=== PATIENT | female | born 1995 | race Caucasian/White ===

== ENCOUNTER 2024-02-18 12:36 | Outpatient (CLI) | payer MEDICAID, SELFPAY ==
--- NOTE | 2024-02-18 13:00 | CRLHL7_ITS ---
For Patients: As a result of the Cures Act, medical imaging exams and procedure reports are released immediately into your electronic medical record. You may view this report before your referring provider. If you have questions, please contact your health care provider. INDICATION: First trimester scan, establish dates. COMPARISON: None. TECHNIQUE: Real-time lomeli-scale imaging of the pelvis was performed. FINDINGS: Sonographic imaging demonstrates a single living intrauterine gestation. The embryo demonstrates a regular cardiac rate measuring 165 beats per minute. The embryo`s crown-rump length measurement of 6.0 cm corresponds to a gestational age of 12 weeks 3 days with a sonographic due date of 08/29/2024. There is a normal-appearing yolk sac. There are no gross abnormalities noted within the embryo at this early state of development. The gestational sac has a normal appearance. There is no evidence of a perigestational hemorrhage. The amount of fluid within the sac appears appropriate for gestational age. The cervix is closed. The myometrium appears normal. Left ovary not visualized. Corpus luteal cyst right ovary. There are no suspicious fluid collections noted in the cul-de-sac. IMPRESSION: Normal first trimester OB ultrasound exam. Gestational age calculated at 12 weeks 3 days with a sonographic due date of 08/29/2024. Dictated by Steve Fitzgerald MD @ 02/19/2024 8:32:38 AM (Electronically Signed)
== END 2024-02-18 12:37 | disposition home or self-care (01) ==
PROVIDERS: PCP Family Medicine; Visit Provider Physician Assistant
DX: Z34.91 Encounter for supervision of normal pregnancy, unspecified, first trimester (principal); Z3A.12 12 weeks gestation of pregnancy
CPT/HCPCS: 76801

== ENCOUNTER 2024-02-18 14:16 | Outpatient (CLI) | payer MEDICAID, SELFPAY ==
[2024-02-18 20:10] LABS: Chlamydia DNA Amplified* NOT DETECTED (No Detected); GC DNA Amplified* NOT DETECTED (No Detected)
[2024-02-21 01:30] LABS: HPV Source Cervix; HPV, High Risk by TMA Not Detected
== END 2024-02-18 14:17 | disposition home or self-care (01) ==
PROVIDERS: PCP Family Medicine; Visit Provider Physician Assistant
DX: Z34.01 Encounter for supervision of normal first pregnancy, first trimester (principal); Z67.10 Type A blood, Rh positive; Z3A.12 12 weeks gestation of pregnancy
CPT/HCPCS: 86592; 86703; 86704; 86706; 86762; 86787; 86803; 86850; 86900; 86901; 87086; 87340; 87491; 87591; 87624; 87625; 88141; 88142

== ENCOUNTER 2024-04-11 07:03 | Outpatient (CLI) | payer BC, SELFPAY ==
--- NOTE | 2024-04-11 07:15 | CRLHL7_ITS ---
For Patients: As a result of the Century Cures Act, medical imaging exams and procedure reports are released immediately into your electronic medical record. You may view this report before your referring provider. If you have questions, please contact your health care provider. INDICATION: survey TECHNIQUE: Conventional transabdominal two-dimensional grayscale ultrasound examination COMPARISON: None FINDINGS: There is a living fetus with gestational age of 19 weeks 5 days by LMP and 20 weeks 2 days by today`s measurements. EDC based on LMP is 08/31/2024. BPD: 4.6 cm, 19 weeks 6 days Head circumference: 17.6 cm, 20 weeks 1 day Abdominal circumference: 15.2 cm, 20 weeks 3 days Femur length: 3.3 cm, 20 weeks 3 days HC/AC: 1.16 The weight is estimated at 348 grams, the 81st percentile. The heart rate is measured at 154 beats per minute and the rhythm appears regular. The head and spine are grossly intact. No gross facial abnormality is evident. The upper lip is intact. Four cardiac chambers are demonstrated. The heart and stomach appear to be on the same side. The diaphragm is intact. Two kidneys and a bladder are demonstrated. The cord insertion is normal and three cord vessels are noted. The hands and left arm are not visualized due to lie. The right arm and both legs are visualized. The amniotic fluid volume is within normal limits. The placenta is anterior with no evidence of previa. The cervical length is normal at 3.3 cm. IMPRESSION: 1. Living fetus with gestational age of 19 weeks 5 days by LMP and 20 weeks 2 days by today`s measurements. EDC based on LMP is 08/31/2024. 2. No anomaly evident. The hands and left arm not visualized due to lie. Dictated by Peter Bartholomew MD @ 04/11/2024 12:26:27 PM (Electronically Signed)
== END 2024-04-11 07:04 | disposition home or self-care (01) ==
PROVIDERS: PCP Family Medicine; Visit Provider Obstetrics & Gynecology
DX: Z34.92 Encounter for supervision of normal pregnancy, unspecified, second trimester (principal); Z3A.19 19 weeks gestation of pregnancy
CPT/HCPCS: 76805

== ENCOUNTER 2024-05-09 10:02 | Outpatient (CLI) | payer BC, SELFPAY ==
--- NOTE | 2024-05-09 10:15 | CRLHL7_ITS ---
For Patients: As a result of the Century Cures Act, medical imaging exams and procedure reports are released immediately into your electronic medical record. You may view this report before your referring provider. If you have questions, please contact your health care provider. INDICATION: Hands and left arm not visualized on survey TECHNIQUE: Limited transabdominal two-dimensional lomeli-scale ultrasound examination. COMPARISON: survey of 04/11/2024 FINDINGS: There is a living fetus in breech lie with gestational age of 23 weeks 5 days by LMP and EDC of 08/31/2024. The heart rate is measured at 157 beats per minute and the rhythm appears regular. The amniotic fluid volume is within normal limits with single deepest pocket of 5.4 cm. The placenta is anterior and superior to the cervical os. There is no evidence of previa. The hands and left arm are visualized and are unremarkable. IMPRESSION: 1. Living fetus in breech lie with gestational age of 23 weeks 5 days by LMP and EDC of 08/31/2024. 2. hands and left arm visualized and are unremarkable. Dictated by Peter Bartholomew MD @ 05/09/2024 4:33:24 PM (Electronically Signed)
== END 2024-05-09 10:03 | disposition home or self-care (01) ==
LOC: US 10:03
PROVIDERS: PCP Family Medicine; Visit Provider Obstetrics & Gynecology
DX: O35.GXX0 Maternal care for other (suspected) fetal abnormality and damage, fetal upper extremities anomalies, not applicable or unspecified (principal)
CPT/HCPCS: 76816

== ENCOUNTER 2024-06-06 10:01 | Outpatient (CLI) | payer BC, SELFPAY | END 2024-06-06 10:02 | disposition home or self-care (01) | LOC: NFLDREF 06-08 01:30 | PROVIDERS: PCP Family Medicine; Referring Provider Family Medicine; Visit Provider Obstetrics & Gynecology | DX: Z34.03 Encounter for supervision of normal first pregnancy, third trimester (principal) | CPT/HCPCS: 86592 ==

== ENCOUNTER 2024-08-05 14:20 | Outpatient (CLI) | payer BC, SELFPAY ==
[2024-08-06 15:02] LABS: Strep B DNA Probe Negative (Negative)
[2024-08-06 19:53] LABS: Strep B Susceptibility Needed? No
== END 2024-08-05 14:21 | disposition home or self-care (01) ==
LOC: NFLDREF 14:21
PROVIDERS: PCP Family Medicine; Visit Provider Obstetrics & Gynecology
DX: Z34.93 Encounter for supervision of normal pregnancy, unspecified, third trimester (principal); Z3A.36 36 weeks gestation of pregnancy
CPT/HCPCS: 87081; 87653

== ENCOUNTER 2024-08-11 11:15 | Outpatient (CLI) | payer BC, SELFPAY ==
[2024-08-11 11:18] VITALS: BP 115/67; PULSE 84; RESP 16
[2024-08-11 11:43] VITALS: PULSE 71; O2SAT 96
--- NOTE | 2024-08-11 12:46 | PC.OBNST ---
NST Note NST Note Start: 08/11/24 11:18 Freq: ONCE Status: Active Protocol: Document 08/11/24 12:43 BAW (Rec: 08/11/24 12:45 BAW No Response) NST Note 1 Para (# of births) 0 EDC 08/31/24 Gestational Age In Weeks & Days 37 Weeks & 1 Days Patient Presented with Complaint(s) of Decreased movement Reactive Yes Appropriate for Gestational Age Yes JOSHUA Wright RNC Date 08/11/24 Reactive Yes Appropriate for Gestational Age Yes JOSHUA Blum RNC Date 08/11/24 OB NST charge Yes Complete NST Note via Write Note Yes The provider's electronic signature indicates the NST is reactive/appropriate for gestational age. *Note to provider: If an addendum is required, open the patient's chart and click on the note under the Nurse/Allied Health tab.
== END 2024-08-11 12:17 | disposition home or self-care (01) ==
LOC: OB OUT 11:16 → OB 11:17
PROVIDERS: PCP Family Medicine; Visit Provider Obstetrics & Gynecology
DX: O36.8130 Decreased fetal movements, third trimester, not applicable or unspecified (principal); Z3A.37 37 weeks gestation of pregnancy
CPT/HCPCS: 59025; G0463

== ENCOUNTER 2024-08-12 10:03 | Outpatient (CLI) | payer BC, SELFPAY ==
--- NOTE | 2024-08-12 10:00 | CRLHL7_ITS ---
For Patients: As a result of the Century Cures Act, medical imaging exams and procedure reports are released immediately into your electronic medical record. You may view this report before your referring provider. If you have questions, please contact your health care provider. Indication: Decreased movement Technique: Sonography of the gravid uterus was performed limited to a standard biophysical profile examination. Comparison: None for the purposes of a biophysical profile Findings: The cervix was not visualized. There is a single living intrauterine that is currently vertex. Single deepest pocket is 7.3 centimeters. Total ARMANI 16.7 centimeters. The placenta is anterior. heart rate is 159 beats per minute which is normal. The biophysical profile score is 6/8. No gross body movements were observed during the examination. Impression: 1. The biophysical profile score is 6/8. No gross body movements observed during the time course of the examination. 2. Single live intrauterine that is vertex. Total ARMANI 16.7. Anterior placenta. Heart rate 159 beats per minute. Dictated by Vidal Braxton MD @ 08/12/2024 11:21:03 AM (Electronically Signed)
== END 2024-08-12 10:04 | disposition home or self-care (01) ==
LOC: US 10:04
PROVIDERS: PCP Family Medicine; Visit Provider Obstetrics & Gynecology
DX: O36.8130 Decreased fetal movements, third trimester, not applicable or unspecified (principal); Z3A.37 37 weeks gestation of pregnancy
CPT/HCPCS: 76819

== ENCOUNTER 2024-08-12 11:31 | Inpatient (IN) | payer BC, SELFPAY ==
[2024-08-12] VITALS (7 sets, daily range): BP systolic 111–126; BP diastolic 63–77; PULSE 64–82; RESP 16–17; TEMP 36.7–37.1; O2SAT 99; BMI 29.2
[2024-08-12] MEDS: miSOPROStoL 25 MCG/0.25 TABLET VAGINAL ×3 (13:45→22:05)
--- NOTE | 2024-08-12 20:09 | PM.OBHPLI ---
OB - H&P: HPI Labor/Induction History of Present Illness Date Seen: 08/12/24 Chief Complaint: Charley is a 29yo at 37w2d GA admitted for IOL in the setting of equivocal BPP (6/10) at term. She was seen in clinic today, reported decreased movement where subsequent NST was nonreactive and BPP was 6/8 (2 off for gross movement). is otherwise uncomplicated. Patient is feeling well today. Denies contractions, vaginal bleeding, leaking of fluids. Endorses active movement. Limited ROS negative. Chief complaint: Maternity Narrative: Charley Liz is a 29 year old female Specific Issues/Plans G1 Partner: Truong H&P: [] # Rubella non-immune MMR # Low back pain-sciatic nerve pain Since prior to Sees a chiropractor Imagin02/18/2024 12 3/7 weeks, ultrasound ANISH 08/29/2024 04/11/2024 anatomy scan normal, anterior placenta without previa, hands and left arm not well visualized position 05/09/2024 follow-up ultrasound, normal hands and left arm Vaccinations: COVID: Declines Flu:Declines Tdap: declines RSV: declines 32 week mental health: 07/13/24 0, 1 Last pap:02/18/24 Meds Home Medications and Allergies Home Medications ?Medication ?Instructions ?Recorded ?Confirmed ?Type ZDG-jufl-CI-omega 3-fat com #1 27 1 cap PO QDAY 02/18/24 08/12/24 History mg-1 mg-300 mg capsule Allergies Allergy/AdvReac Type Severity Reaction Status Date / Time No Known Drug Allergies Allergy Verified 08/12/24 13:11 OB - H&P: Exam Physical Exam: Vital signs: Temp Pulse Resp BP Pulse Ox 98.7 F 68 17 123/71 99 08/12/24 13:30 08/12/24 16:55 08/12/24 13:30 08/12/24 16:55 08/12/24 11:56 Narrative: General: Alert and oriented, in no acute distress Psych: Appropriate mood and affect Abdomen: Gravid. Non-tender. EFW 3300g by Isrrael'emily. Cervix: Long/thick/closed, -3 station NST: Category 1 [place]: Uterine irritability OB - Problem Based A/P Additional Plan (1) Non-reassuring electronic monitoring tracing: Status: Acute (2) 37 weeks gestation of : Status: Acute (3) GERD (gastroesophageal reflux disease): Status: Acute Plan Charley is a 29yo at 37w2d GA admitted for IOL in the setting of equivocal BPP at term. She reported decreased movement in the clinic, with subsequent 6/10 BPP - off for nonreactive NST and gross movement. Given this finding, IOL was recommended consistent with ACOG guidelines. - Admit to L&D for IOL - Recommend continuous monitoring, category 1 at this time - Cervix closed on admission, plan cervical ripening with cytotec overnight - GBS negative - BT A+, active T/S on file
[2024-08-12 20:56] LABS: Basophils Absolute Auto 0.03 K/uL (0.00-0.30); Basophils Percent Auto 0.3 % (0.0-3.0); Eosinophils Absolute Auto 0.31 K/uL (0.00-0.50); Eosinophils Percent Auto 3.2 % (0.0-7.0); Hemoglobin* 11.2 gm/dL (12.0-16.0); Immature Granulocytes Abs Auto 0.02 K/uL (0.00-0.30); Immature Granulocytes Pct Auto 0.2 %; Lymphocytes Percent Auto 16.3 % (20-44); Mean Corpuscular HGB Conc 34 gm/dL (32-36); Mean Corpuscular Hemoglobin 30 pg (26-34); Mean Corpuscular Volume 90 fL (80-100); Monocytes Percent Auto 8.6 % (0.0-11.0); Neutrophils Absolute Auto 7.01 K/uL (1.7-7.0); Neutrophils Percent Auto 71.4 % (42.0-72.0); Platelet Count* 218 K/uL (140-440); RDW Coefficient of Variation % 13.8 % (11.5-15.5); Red Blood Count 3.68 m/uL (4.00-5.20); White Blood Count* 9.81 K/uL (4.50-11.00)
[2024-08-12 21:00] LABS: Slide Review Reflex No
[2024-08-12] MEDS: LACTATED RINGERS 1000 ML 1,000 ML 500 ML IV (21:01)
[2024-08-13] VITALS (76 sets, daily range): BP systolic 93–134; BP diastolic 50–86; PULSE 59–130; RESP 16–18; TEMP 36.3–37; O2SAT 88–100
[2024-08-13] MEDS: miSOPROStoL 25 MCG/0.25 TABLET VAGINAL (02:22)
[2024-08-13] MEDS: LACTATED RINGERS 1000 ML 1,000 ML 125 ML IV (07:59)
[2024-08-13] MEDS: OXYTOCIN 30 unit/500 ML in NS 30 UNIT/500 ML BAG IVPB (08:01)
--- NOTE | 2024-08-13 10:25 | PM.OBPNL ---
Subjective Time Seen by Provider: 10: Date Seen: 08/13/24 Narrative: In pain Objective Vital Signs: Last Vital Signs Temp 97.7 F 08/13/24 09:22 Pulse 67 08/13/24 09:35 Resp 16 08/13/24 05:55 BP 115/61 08/13/24 09:35 Pulse Ox 98 08/13/24 02:27 Pelvic Exam Dilation (cm): 6 Effacement (%): 90 Station: 0 Contractions Monitor mode: External Contraction pattern: Regular Assessment Assessment: induction ongoing Station: 0 Amniotic Membrane Status: SROM Status: Category ll Heart Rate Baseline: 150 Loading Checker Variability: Moderate (6-25) Monitor Accelerations: Present Monitor Decelerations: Variable Plan Plan: Has progressed well, plans to get epidural now. Category 2 tracing, due to variable/early decelerations-moderate variability and accelerations. Oxytocin has been held for the moment, as she was jasson very frequently and due to category 2 tracing. Will continue current management, normal progress so far.
[2024-08-13] MEDS: ROPIVACAINE 0.2% 100 ml 100 ML 12 MG EPIDURAL (11:00)
[2024-08-13] MEDS: BUPIVACAINE 0.25% PF 10 ML 10 ML ML EPIDURAL (11:01)
--- NOTE | 2024-08-13 11:08 | P.ANBPRC_ITS ---
[facility] Social History (Updated 02/18/24 @ 14:44 by Saida Baird PA-C) Narrative: SOCIAL HISTORY: Occupation: She owns a dog boarding facility. Marital status: Single. Congregation/cultural needs: no. Chemical or radiation exposure: no. Pre- tobacco use: no. Pre- alcohol use: no. Current tobacco use: no. Current alcohol use: no. Recreational drug use: no. Dietary restrictions: no. Blood transfusion acceptable in an emergency: yes. PSYCHOSOCIAL HISTORY: History of depression or currently depressed: Denies. Current or past physical, emotional, or sexual mistreatment: Denies. Problems that will make it hard to make it to appointments: Denies. What is your current living situation?: I presently have a place to live Problems where you live: no known problems In the past 12 months, utilities in danger of being shut off: no In past 12 months, lack of transportation kept you from medical appts, meetings, work, or getting things needed for daily living: no In the past 12 mos, have been you worried that your food would run out before you had money to buy more?: never true In the past 12 mos, the food you bought just didn't last and you didn't have money to buy more?: never true Smoking Status: Never smoker How often does anyone, including family, friends and others, physically hurt you : never How often does anyone, including family, friends and others, insult or talk down to you: never How often does anyone, including family, friends and others, threaten you with harm: never How often does anyone, including family, friends and others, scream or curse at you: never Meds Home Medications and Allergies Home Medications ?Medication ?Instructions ?Recorded ?Confirmed ?Type UHT-gxyl-FQ-omega 3-fat com #1 27 1 cap PO QDAY 02/18/24 08/12/24 History mg-1 mg-300 mg capsule Allergies Allergy/AdvReac Type Severity Reaction Status Date / Time No Known Drug Allergies Allergy Verified 08/12/24 13:11 Results Labs Labs: Laboratory Results - last 24 hr 08/12/24 20:50 WBC 9.81 RBC 3.68 L Hgb 11.2 L Hct 33.0 MCV 90 MCH 30 MCHC 34 RDW Coeff of Dawit 13.8 Plt Count 218 Neut % (Auto) 71.4 Lymph % (Auto) 16.3 L [place] % (Auto) 8.6 Eos % (Auto) 3.2 Baso % (Auto) 0.3 Neut # (Auto) 7.01 H Lymph # (Auto) 1.60 [place] # (Auto) 0.80 Eos # (Auto) 0.31 Baso # (Auto) 0.03 Abs Immat Gran (auto) 0.02 Imm/Tot Granulo (auto) 0.2 Blood Type A Positive Antibody Screen NEGATIVE Vital Signs Vital Signs: Last Vital Signs Temp 97.7 F 08/13/24 09:22 Pulse 85 08/13/24 11:06 Resp 16 08/13/24 05:55 BP 127/62 08/13/24 11:06 Pulse Ox 100 08/13/24 11:05 Weight: 89.811 kg Height: 175.26 cm Anesthesia Procedures Epidural Insertion Patient Location: OB Start Time: 10:35 Stop Time: 11:09 Start Date: 08/13/24 Stop Date: 08/13/24 Reason for Block: procedure for pain Patient Position: sitting Performed By: Ki Loza Preanesthetic Checklist: IV checked, risks and benefits discussed, monitors and equipment checked, pre-op evaluation, timeout performed and anesthesia consent Prep: chlorhexidine gluconate Monitoring: blood pressure monitoring, continuous pulse oximetry and heart rate Approach: midline Vertebral Space: lumbar (1-5) Epidural Technique: ARABELLA saline Needle Type: Tuohy needle Injection Technique: continuous catheter Needle gauge: 17 Needle Length (cm): 10 cm Needle Insertion Depth (cm): 6 Catheter Gauge: 19 Catheter Type: multi-orifice Catheter at skin depth (cm): 12 Test Dose Result: negative and lidocaine 1.5% with epinephrine 1 to 200,000
[2024-08-13] MEDS: PHENYLEPHRINE 100 MCG/ML SYRINGE IVP ×2 (11:15→11:27)
[2024-08-13] MEDS: fentaNYL 100 MCG/2 ML inj 25 MCG EPIDURAL (11:50)
[2024-08-13] MEDS: LACTATED RINGERS 1000 ML 1,000 ML IV (13:25)
--- NOTE | 2024-08-13 14:15 | W.PM.OBVAGDE ---
OB Procedure Vag Delivery Mother Details Mother Details: The patient is a 29 year-old, 1, Para 0, admitted on 08/12/24 at 37 2/7 Days gestation for IOL due to non reassuring testing. Patient had been seen in the clinic yesterday and complained of decreased movement, BPP 6/10. Recommendation was given for admission and IOL. IOL started with Cytotec and patient received 4 doses. This allowed her to proceed with labor and she SROMed this morning. Contractions continued and she progressed on her own, this morning Pitocin was started but discontinued shortly due to tachysystole. Patient got epidural and at around 1120 tracing showed episodes of late decelerations that responded to phenylephrine, position changes and IVFs. At around 1250pm another episode of late deceleration with a prolonged recovery was noted, I evaluated patient at this time and she was complete and +2, +3. Patient started to push effectively and progressive movement noted. Decelerations became more prolonged and recommendation was given for a vacuum assisted vaginal delivery-as below. : 1 Para: 1 Weeks Gestation: 37.3 Admission Date: 08/12/24 Additional Details Amniotic Membrane Status: SROM Amniotic Membrane Rupture Date: 08/13/24 Amniotic Membrane Rupture Time: 04:56 Amniotic Membrane Fluid Description: Clear Analgesia/Anesthesia Type: Epidural Waterbirth: No Pitcoin: Yes (For a very short time this am.) Intrapartal Events: Labor Induction Induction Method: per misoprostol protocol and per pitocin protocol Labor Onset: 10:00 Complete: 12:53 Pushin:59 Heart: heart tones during second stage, late decelerations with a britany in the 90s with more than 50 % of contractions, moderate variability in between contractions, progressive movement noted, patient achieved a large crown in about 30 minutes of pushing, but at around 1:30 pm deceleration to the 70s that took a bit longer to recover and recommendation was given to assist delivery with vacuum. Discussed risk of placement could be to cause bleeding in head of baby if excessive force or too many pulls were made. Verbal consent obtained. Presentation had been confirmed to be OA. station at +3, a kiwi vacuum was placed over Sagital suture and at least 3 cm above the posterior fontanelle. Manual evaluation of the cup revealed no vaginal tissue in the cup. With next contraction and maternal pushing efforts the Kiwi vacuum pressure was set in the green zone and while patient pushed a gentle pull was made upward, head was delivered w/o any pop offs. Vacuum pressure was released. The rest of the body was assisted and delivered easily. Delivery Details Delivery Date: 08/13/24 Delivery Time: 13:44 Route of delivery: vacuum extraction Gender: Female Viability: Alive; Heart Rate Present Position at Delivery: OA Delivery Details: Delivered via vacumm assisted vaginal delivery. Infant was placed on maternal abdomen.? Cord was clamped and cut after a 30-60 second delay. Nose and mouth were bulb suctioned.? weight pending. 1 Minute Interval Total Score: 8 5 Minute Interval Total Score: 9 Additional Details Shoulder Dystocia: No Placenta Delivery Time: 13:48 Placental Delivery Description: Spontaneous Delivery repair: Vicryl Procedure Done: Global Blood Loss: 100 Laceration: Perineal - 2nd Degree Episiotomy Description: None Blood Loss Measurement Type: QBL (100) Bakri Used: No Sponge/Need Count Correct: Yes Cord Vessel Description: 3 Vessels Event Summary Status: Mother and infant were stable after delivery. Disposition: floor
[2024-08-13] MEDS: IBUPROFEN 600 MG TABLET PO (21:38)
[2024-08-14 01:11] VITALS: BP 110/74; PULSE 73; RESP 16; TEMP 36.7
[2024-08-14 05:05] VITALS: BP 111/74; PULSE 86; RESP 16; TEMP 36.7
[2024-08-14 07:06] LABS: Hemoglobin* 10.1 gm/dL (12.0-16.0)
[2024-08-14] MEDS: IBUPROFEN 600 MG TABLET PO (09:05)
[2024-08-14] MEDS: DOCUSATE SODIUM 100 MG CAPSULE PO (09:06)
--- NOTE | 2024-08-14 09:48 | PM.OBDSVD1 ---
DS: Providers Provider Date Seen: 08/14/24 Date of admission: 08/12/24 11:31 Primary care physician: Gino Neal MD Admitting Clinician: Jaja Chandler MD Attending Physician on discharge: MD Jolanta Date of Discharge: 08/14/24 DS: Diagnosis Discharge Diagnosis (1) Status post vacuum-assisted vaginal delivery: Status: Acute Exam Narrative: Exam Narrative: GENERAL APPEARANCE:? normal affect, alert, no distress MOOD:? appropriate CHEST:? clear to auscultation HEART:? regular rate and rhythm ABDOMEN:? soft, non-tender the uterine fundus is At Umbilicus, Midline and is appropriate for the stage of recovery. PERINEUM:? mild edema of the perineum, there is a Perineal Laceration,? second degree that is healing well. EXTREMITIES:? normal and bilateral trace edema Const: Vital Signs, click to edit/add: Vital Signs - 24 hr 08/13/24 10:40 08/13/24 10:43 08/13/24 10:45 Temperature Pulse Rate 74 Pulse Rate [Left B lood Pressure Cuff ] Respiratory Rate Blood Pressure 116/66 Blood Pressure [Le ft Arm] Pulse Oximetry 100 100 Oxygen Delivery Me thod 08/13/24 10:50 08/13/24 10:55 08/13/24 10:56 Temperature Pulse Rate 86 Pulse Rate [Left B lood Pressure Cuff ] Respiratory Rate Blood Pressure 134/86 Blood Pressure [Le ft Arm] Pulse Oximetry 100 100 Oxygen Delivery Me thod 08/13/24 10:57 08/13/24 11:00 08/13/24 11:02 Temperature Pulse Rate 67 67 62 Pulse Rate [Left B lood Pressure Cuff ] Respiratory Rate Blood Pressure 111/67 119/59 L 126/58 L Blood Pressure [Le ft Arm] Pulse Oximetry 100 Oxygen Delivery Me thod 08/13/24 11:04 08/13/24 11:05 08/13/24 11:06 Temperature Pulse Rate 84 85 Pulse Rate [Left B lood Pressure Cuff ] Respiratory Rate Blood Pressure 129/61 127/62 Blood Pressure [Le ft Arm] Pulse Oximetry 100 Oxygen Delivery Me thod 08/13/24 11:10 08/13/24 11:10 08/13/24 11:12 Temperature 97.4 F L Pulse Rate 85 Pulse Rate [Left B lood Pressure Cuff ] Respiratory Rate Blood Pressure 110/65 Blood Pressure [Le ft Arm] Pulse Oximetry 100 Oxygen Delivery Me thod 08/13/24 11:14 08/13/24 11:15 08/13/24 11:16 Temperature Pulse Rate 82 106 H Pulse Rate [Left B lood Pressure Cuff ] Respiratory Rate Blood Pressure 120/63 127/74 Blood Pressure [Le ft Arm] Pulse Oximetry 100 Oxygen Delivery Me thod 08/13/24 11:18 08/13/24 11:20 08/13/24 11:24 Temperature Pulse Rate 59 L 74 62 Pulse Rate [Left B lood Pressure Cuff ] Respiratory Rate Blood Pressure 127/61 124/58 L 108/57 L Blood Pressure [Le ft Arm] Pulse Oximetry 100 Oxygen Delivery Me thod 08/13/24 11:25 08/13/24 11:26 08/13/24 11:30 Temperature Pulse Rate 65 Pulse Rate [Left B lood Pressure Cuff ] Respiratory Rate Blood Pressure 107/56 L Blood Pressure [Le ft Arm] Pulse Oximetry 100 100 Oxygen Delivery La thod 08/13/24 11:31 08/13/24 11:35 08/13/24 11:36 Temperature Pulse Rate 65 69 Pulse Rate [Left B lood Pressure Cuff ] Respiratory Rate Blood Pressure 112/57 L 104/54 L Blood Pressure [Le ft Arm] Pulse Oximetry 100 Oxygen Delivery La thod 08/13/24 11:40 08/13/24 11:43 08/13/24 11:45 Temperature Pulse Rate 76 Pulse Rate [Left B lood Pressure Cuff ] Respiratory Rate Blood Pressure 101/52 L Blood Pressure [Le ft Arm] Pulse Oximetry 99 100 Oxygen Delivery Me thod 08/13/24 11:46 08/13/24 11:50 08/13/24 11:55 Temperature Pulse Rate 73 Pulse Rate [Left B lood Pressure Cuff ] Respiratory Rate Blood Pressure 102/50 L Blood Pressure [Le ft Arm] Pulse Oximetry 99 100 Oxygen Delivery Me thod 08/13/24 12:00 08/13/24 12:05 08/13/24 12:09 Temperature Pulse Rate 78 Pulse Rate [Left B lood Pressure Cuff ] Respiratory Rate Blood Pressure 93/50 L Blood Pressure [Le ft Arm] Pulse Oximetry 100 100 Oxygen Delivery Me thod 08/13/24 12:10 08/13/24 12:15 08/13/24 12:20 Temperature Pulse Rate Pulse Rate [Left B lood Pressure Cuff ] Respiratory Rate Blood Pressure Blood Pressure [Le ft Arm] Pulse Oximetry 100 99 99 Oxygen Delivery Me thod 08/13/24 12:25 08/13/24 12:29 08/13/24 12:30 Temperature Pulse Rate 80 Pulse Rate [Left B lood Pressure Cuff ] Respiratory Rate Blood Pressure 112/65 Blood Pressure [Le ft Arm] Pulse Oximetry 100 100 Oxygen Delivery Me thod 08/13/24 12:35 08/13/24 12:39 08/13/24 12:40 Temperature Pulse Rate 85 Pulse Rate [Left B lood Pressure Cuff ] Respiratory Rate Blood Pressure 101/58 L Blood Pressure [Le ft Arm] Pulse Oximetry 100 100 Oxygen Delivery Me thod 08/13/24 12:45 08/13/24 12:50 08/13/24 12:55 Temperature Pulse Rate Pulse Rate [Left B lood Pressure Cuff ] Respiratory Rate Blood Pressure Blood Pressure [Le ft Arm] Pulse Oximetry 100 100 100 Oxygen Delivery Me thod 08/13/24 13:04 08/13/24 13:07 08/13/24 13:09 Temperature Pulse Rate Pulse Rate [Left B lood Pressure Cuff ] Respiratory Rate Blood Pressure Blood Pressure [Le ft Arm] Pulse Oximetry 100 88 100 Oxygen Delivery Me thod 08/13/24 13:14 08/13/24 13:19 08/13/24 13:24 Temperature Pulse Rate Pulse Rate [Left B lood Pressure Cuff ] Respiratory Rate Blood Pressure Blood Pressure [Le ft Arm] Pulse Oximetry 100 100 100 Oxygen Delivery Me thod 08/13/24 13:25 08/13/24 13:29 08/13/24 13:34 Temperature Pulse Rate 105 H Pulse Rate [Left B lood Pressure Cuff ] Respiratory Rate Blood Pressure 115/58 L Blood Pressure [Le ft Arm] Pulse Oximetry 100 90 Oxygen Delivery Me thod 08/13/24 13:39 08/13/24 13:41 08/13/24 13:45 Temperature Pulse Rate 97 Pulse Rate [Left B lood Pressure Cuff ] Respiratory Rate Blood Pressure 107/64 Blood Pressure [Le ft Arm] Pulse Oximetry 100 91 99 Oxygen Delivery Me thod 08/13/24 13:55 08/13/24 13:55 08/13/24 14:09 Temperature Pulse Rate 86 90 Pulse Rate [Left B lood Pressure Cuff ] Respiratory Rate 18 Blood Pressure 115/56 L 115/66 Blood Pressure [Le ft Arm] Pulse Oximetry Oxygen Delivery Me thod 08/13/24 14:09 08/13/24 14:24 08/13/24 14:24 Temperature Pulse Rate 88 Pulse Rate [Left B lood Pressure Cuff ] Respiratory Rate 18 18 Blood Pressure 105/64 Blood Pressure [Le ft Arm] Pulse Oximetry Oxygen Delivery Me thod 08/13/24 14:39 08/13/24 14:40 08/13/24 14:54 Temperature Pulse Rate 91 85 Pulse Rate [Left B lood Pressure Cuff ] Respiratory Rate 18 Blood Pressure 124/60 111/73 Blood Pressure [Le ft Arm] Pulse Oximetry Oxygen Delivery La thod 08/13/24 14:54 08/13/24 15:09 08/13/24 15:09 Temperature Pulse Rate 74 Pulse Rate [Left B lood Pressure Cuff ] Respiratory Rate 18 18 Blood Pressure 118/68 Blood Pressure [Le ft Arm] Pulse Oximetry Oxygen Delivery La thod 08/13/24 15:24 08/13/24 15:24 08/13/24 15:39 Temperature 98 F Pulse Rate 83 80 Pulse Rate [Left B lood Pressure Cuff ] Respiratory Rate 18 Blood Pressure 117/67 116/67 Blood Pressure [Le ft Arm] Pulse Oximetry Oxygen Delivery La thod 08/13/24 15:39 08/13/24 20:46 08/14/24 01:11 Temperature 98.6 F 98.0 F Pulse Rate Pulse Rate [Left B lood Pressure Cuff ] 80 73 Respiratory Rate 18 16 16 Blood Pressure Blood Pressure [Le ft Arm] 115/77 110/74 Pulse Oximetry Oxygen Delivery La thod Room Air Room Air 08/14/24 05:05 Temperature 98.0 F Pulse Rate Pulse Rate [Left B lood Pressure Cuff ] 86 Respiratory Rate 16 Blood Pressure Blood Pressure [Le ft Arm] 111/74 Pulse Oximetry Oxygen Delivery Me thod OB - DS: Summary Hospital Course Hospital Course: The patient is a 29 year old G 1 P 1 at 37 2/7 weeks gestation that was admitted to the Center on 08/12/24 for IOL due to non reassuring testing. She had an uncomplicated vacuum assisted vaginal delivery. She delivered a viable female infant. She is breast feeding. the patient has done well. Peripartum Data Infant delivery method: Vacuum Laceration description: Perineal - 2nd Degree complications: none [place] Infant Gender: Female Discharge Plan: Home Status at Discharge Functional status at discharge: independent ambulation Overall status at discharge: patient is progressing back to baseline Time Spent with Patient Time attestation: Total time spent providing and/or coordinating discharge services: Time spent: Less than 30 minutes Discharge Plan Discharge Disposition: Home, Self-Care Date of Admission: 08/12/24 11:31 Primary Care Provider: Gino Neal Condition: Stable Anticipated Discharge Date/Time: 08/14/24 16:00 Discharge Medications: New acetaminophen 500 mg Tablet 1,000 mg PO Q6H PRNQty: 30 0RF ibuprofen 600 mg Tablet 600 mg PO Q6H PRNQty: 30 0RF Continued [id number] 3-fat com #1 [id number] mg capsule 1 cap PO QDAY omeprazole 40 mg capsule,delayed release(DR/EC) 40 mg PO QDAY Qty: 30 0RF Discharge Orders: Discharge Order (Routine); Ordered 08/14/24 Ordered By: Adeline Levin Patient Education: OB Vaginal/Breast Feeding Activity Level: Activity as Tolerated Activity Detail: Nothing vaginally for 6 weeks Discharge Diet: Regular Follow Up Appointments: Gino Neal MD [Primary Care Provider] - Forms: [employer] Info Instructions
[2024-08-14 10:00] VITALS: BP 118/75; PULSE 82; RESP 16; TEMP 36.4; O2SAT 98
--- NOTE | 2024-08-14 11:56 | PM.ANPOST ---
Post Anesthesia Note Post Anesthesia Note Patient seen: Inpatient Respiratory Status: adequate Cardiovascular Status: adequate Mental Status: baseline Pain: adequate Temp: baseline Anesthetic awareness: N/A Complications: none Follow care: none
[2024-08-14 13:47] VITALS: BP 109/58; PULSE 86; RESP 16; TEMP 36.7; O2SAT 97
[2024-08-14 17:45] LABS: Rapid Plasma Reagin (RPR) Non Reactive (Non Reactive)
== END 2024-08-14 18:46 | disposition home or self-care (01) | DRG 560 ==
PROVIDERS: Obstetrics & Gynecology; Admitting Provider Obstetrics & Gynecology; PCP Family Medicine; Visit Provider Obstetrics & Gynecology
DX: O36.8130 Decreased fetal movements, third trimester, not applicable or unspecified (principal); O36.8330 Maternal care for abnormalities of the fetal heart rate or rhythm, third trimester, not applicable or unspecified; O70.1 Second degree perineal laceration during delivery; K21.9 Gastro-esophageal reflux disease without esophagitis; Z3A.37 37 weeks gestation of pregnancy; Z37.0 Single live birth
CPT/HCPCS: 01967; 36415; 59200; 85018; 85025; 86592; 86850; 86900; 86901; 88307; A9270; J0665; J2371; J2795; J3010; J7120